=== PATIENT | male | born 1975 | race Two or more races ===

== ENCOUNTER 2023-11-15 19:39 | Inpatient (IN) | payer OTHER ==
[~2023-11-15] VITALS: Ht 170.2 cm; Wt 102.1 kg
[2023-11-15 20:49] LABS: BASOPHILS % (AUTO) 0.8 % (0.0-2.0); EOSINOPHILS % (AUTO) 1.9 % (1.0-6.0); HEMATOCRIT 49.8 % (41-53); HEMOGLOBIN 15.8 g/dL (13.5-17.5); LYMPHOCYTES # (AUTO) 1.6 K/uL (1.0-4.8); LYMPHOCYTES % (AUTO) 22.1 % (22.0-44.0); MEAN CORPUSCULAR HEMOGLOBIN 29.3 pg (26.0-34.0); MEAN CORPUSCULAR HGB CONC 31.8 G/dL (31.0-37.0); MEAN CORPUSCULAR VOLUME 92 fL (80-100); MONOCYTES # (AUTO) 0.8 K/uL (0.1-1.0); MONOCYTES % (AUTO) 10.6 % (2.0-9.0); NEUTROPHILS # (AUTO) 4.8 K/uL (1.8-7.7); NEUTROPHILS % (AUTO) 64.6 % (40.0-70.0); PLATELET COUNT (AUTO) 186 K/uL (150-450); RED CELL DISTRIBUTION WIDTH 16.1 % (11.5-14.5); WHITE BLOOD COUNT (AUTO) 7.4 K/uL (4.5-11.0)
[2023-11-15 20:55] LABS: CREATININE 1.57 mg/dL (0.60-1.30); POTASSIUM 3.8 mmol/L (3.5-5.1)
[2023-11-15 20:56] LABS: CALCIUM, TOTAL 8.4 mg/dL (8.8-10.5)
[2023-11-15 21:03] LABS: INR 1.3 (0.9-1.1); PROTHROMBIN TIME 13.3 SEC (9.4-11.6)
[2023-11-15 21:09] LABS: TROPONIN I-HIGH SENSITIVITY 102 ng/L (<76)
[2023-11-15 21:20] LABS: BILIRUBIN,TOTAL 1.7 mg/dL (0.1-1.0); TOTAL PROTEIN, SERUM 7.5 g/dL (6.4-8.2)
[2023-11-15] MEDS: FUROSEMIDE 20 MG/2 ML VIAL IVP ONE (22:45)
[2023-11-15] MEDS: NITROGLYCERIN 2% (1 GM=INCH) OINTMENT PACKET TP ONE (22:45)
[2023-11-16] VITALS (8 sets, daily range): BP systolic 105–162; BP diastolic 55–111; PULSE 75–109; RESP 18–22; TEMP 97.7–98; O2SAT 96–100
[2023-11-16] MEDS ORDERED: ONDANSETRON HCL 4 MG/2 ML VIAL IVP PRN
[2023-11-16 00:03] LABS: SODIUM,URINE RANDOM 94 mmol/l (20-110)
[2023-11-16 00:09] LABS: AMPHET/METH SCREEN,URINE POSITIVE (NEGATIVE); BENZODIAZEPINES SCREEN,URINE NEGATIVE (NEGATIVE); CANNABINOID SCREEN,URINE NEGATIVE (NEGATIVE); COCAINE SCREEN,URINE NEGATIVE (NEGATIVE); METHADONE SCREEN, URINE NEGATIVE (NEGATIVE); OPIATE SCREEN,URINE NEGATIVE (NEGATIVE); PHENCYCLIDINE SCREEN,URINE NEGATIVE (NEGATIVE)
[2023-11-16 00:20] LABS: ALCOHOL, URINE DRUG SCREEN NEGATIVE (NEGATIVE); CREATININE,URINE RANDOM < 5.0 mg/dL (30.0-125.0)
[2023-11-16 00:32] LABS: BARBITURATE SCREEN, URINE NEGATIVE (NEGATIVE)
[2023-11-16 00:38] LABS: APPEARANCE,URINE CLEAR (CLEAR); BILIRUBIN,URINE NEGATIVE (NEGATIVE); COLOR,URINE COLORLESS (YELLOW); GLUCOSE, URINE (UA) NEGATIVE (NEGATIVE); KETONES,URINE NEGATIVE (NEGATIVE); LEUKOCYTE ESTERASE ,URINE NEGATIVE (NEGATIVE); NITRATE,URINE NEGATIVE (NEGATIVE); OCCULT BLOOD,URINE NEGATIVE (NEGATIVE); PH,URINE 5.5 (5.0-8.0); PROTEIN,URINE NEGATIVE (NEGATIVE); SPECIFIC GRAVITIY, URINE 1.004 (1.003-1.030); UROBILINOGEN,URINE <=1.0 mg/dL (<=1.0)
[2023-11-16 00:43] LABS: LACTIC ACID 0.8 mmol/L (0.4-2.0)
[2023-11-16 00:44] LABS: PH,URINE DRUG SCREEN 5.5 (5.0-8.0)
[2023-11-16] MEDS: SODIUM CHLORIDE 0.9% 250 ML IV ONE (00:55)
[2023-11-16] MEDS: CefTRIAXone 1 GM/DEXTROSE 50 ML IV SCH (00:55)
[2023-11-16] MEDS: ATORVASTATIN CALCIUM 40 MG TABLET PO SCH (00:56)
[2023-11-16] MEDS: CARVEDILOL 3.125 MG TABLET PO SCH (00:56)
[2023-11-16] MEDS: AZITHROMYCIN 500 MG/NS 250 ML IV ONE (00:56)
[2023-11-16] MEDS: HEPARIN SODIUM,PORCINE 5,000 UNITS/ML VIAL SQ SCH (00:57)
[2023-11-16 02:31] LABS: COVID AG,FIA SOURCE NASAL SWAB
[2023-11-16 02:53] LABS: SARS-COV2 (COVID) ANTIGEN,FIA Negative (Negative)
[2023-11-16 06:45] LABS: EOSINOPHILS % (AUTO) 1.3 % (1.0-6.0); HEMATOCRIT 47.7 % (41-53); HEMOGLOBIN 15.5 g/dL (13.5-17.5); LYMPHOCYTES # (AUTO) 1.3 K/uL (1.0-4.8); LYMPHOCYTES % (AUTO) 15.8 % (22.0-44.0); MEAN CORPUSCULAR HEMOGLOBIN 30.1 pg (26.0-34.0); MEAN CORPUSCULAR HGB CONC 32.5 G/dL (31.0-37.0); MEAN CORPUSCULAR VOLUME 93 fL (80-100); MONOCYTES # (AUTO) 0.7 K/uL (0.1-1.0); MONOCYTES % (AUTO) 8.3 % (2.0-9.0); NEUTROPHILS # (AUTO) 6.3 K/uL (1.8-7.7); NEUTROPHILS % (AUTO) 73.6 % (40.0-70.0); PLATELET COUNT (AUTO) 185 K/uL (150-450); RED BLOOD CELL COUNT(AUTO) 5.16 MIL/uL (4.50-5.90); WHITE BLOOD COUNT (AUTO) 8.5 K/uL (4.5-11.0)
[2023-11-16 07:08] LABS: CALCIUM, TOTAL 7.9 mg/dL (8.8-10.5); CREATININE 1.38 mg/dL (0.60-1.30); MAGNESIUM 1.9 mg/dL (1.80-2.40); POTASSIUM 3.8 mmol/L (3.5-5.1)
[2023-11-16] MEDS: DOCUSATE SODIUM 100 MG CAPSULE PO SCH (08:50)
[2023-11-16] MEDS: FUROSEMIDE 20 MG/2 ML VIAL IVP SCH ×2 (08:50→16:59)
[2023-11-16] MEDS: ASPIRIN 81 MG CHEWABLE TABLET PO SCH (08:51)
[2023-11-16 12:59] LABS: PH,URINE DRUG SCREEN 5.5 (5.0-8.0)
[2023-11-16 13:23] LABS: ALCOHOL, URINE DRUG SCREEN NEGATIVE (NEGATIVE); AMPHET/METH SCREEN,URINE POSITIVE (NEGATIVE); BARBITURATE SCREEN, URINE NEGATIVE (NEGATIVE); BENZODIAZEPINES SCREEN,URINE NEGATIVE (NEGATIVE); CANNABINOID SCREEN,URINE NEGATIVE (NEGATIVE); COCAINE SCREEN,URINE NEGATIVE (NEGATIVE); METHADONE SCREEN, URINE NEGATIVE (NEGATIVE); OPIATE SCREEN,URINE NEGATIVE (NEGATIVE); PHENCYCLIDINE SCREEN,URINE NEGATIVE (NEGATIVE)
[2023-11-16 13:46] LABS: TROPONIN I-HIGH SENSITIVITY 80 ng/L (<76)
[2023-11-16] MEDS ORDERED: LORazepam 2 MG TABLET PO PRN (15:30)
[2023-11-16] MEDS ORDERED: PERFLUTREN PROTEIN-A MICROSPHERES 0.22 MG/ML 3 ML VIAL IVP ONE (16:30)
[2023-11-16] MEDS: PERFLUTREN PROTEIN-A MICROSPHERES 0.22 MG/ML 3 ML VIAL IVP ONE (16:47)
[2023-11-16] MEDS: PIPERACILLIN/TAZO 3.375 GM/D5W 50 ML IV SCH (16:58)
[2023-11-16] MEDS: IPRATROPIUM BROMIDE 0.5 MG/2.5 ML NEB SOLUTION NEB PRN (17:35)
[2023-11-16] MEDS: ALBUTEROL SULFATE 2.5 MG/0.5 ML NEB SOLUTION NEB PRN (17:35)
[2023-11-17] VITALS: BP 153/100; PULSE 70; RESP 19; O2SAT 95
[2023-11-17 04:00] VITALS: BP 158/89; PULSE 101; RESP 18; O2SAT 95
[2023-11-17 06:32] LABS: BASOPHILS % (AUTO) 1.1 % (0.0-2.0); EOSINOPHILS % (AUTO) 1.6 % (1.0-6.0); HEMATOCRIT 53.8 % (41-53); HEMOGLOBIN 17.2 g/dL (13.5-17.5); LYMPHOCYTES # (AUTO) 1.9 K/uL (1.0-4.8); LYMPHOCYTES % (AUTO) 20.5 % (22.0-44.0); MEAN CORPUSCULAR HEMOGLOBIN 29.7 pg (26.0-34.0); MEAN CORPUSCULAR HGB CONC 31.9 G/dL (31.0-37.0); MEAN CORPUSCULAR VOLUME 93 fL (80-100); MONOCYTES # (AUTO) 0.9 K/uL (0.1-1.0); MONOCYTES % (AUTO) 9.7 % (2.0-9.0); NEUTROPHILS # (AUTO) 6.1 K/uL (1.8-7.7); NEUTROPHILS % (AUTO) 67.1 % (40.0-70.0); PLATELET COUNT (AUTO) 192 K/uL (150-450); RED BLOOD CELL COUNT(AUTO) 5.77 MIL/uL (4.50-5.90); RED CELL DISTRIBUTION WIDTH 16.6 % (11.5-14.5); WHITE BLOOD COUNT (AUTO) 9.1 K/uL (4.5-11.0)
[2023-11-17 06:47] LABS: CALCIUM, TOTAL 9.3 mg/dL (8.8-10.5); CREATININE 1.33 mg/dL (0.60-1.30); POTASSIUM 3.9 mmol/L (3.5-5.1)
[2023-11-17] MEDS ORDERED: LORazepam 2 MG TABLET PO PRN (07:00)
[2023-11-17 08:21] VITALS: BP 161/115; PULSE 104; RESP 19; TEMP 98.1; O2SAT 98
[2023-11-17] MEDS: LOSARTAN POTASSIUM 25 MG TABLET PO SCH (08:52)
[2023-11-17] MEDS ORDERED: AZITHROMYCIN 250 MG TABLET PO SCH (09:00)
[2023-11-17 11:22] VITALS: BP 131/94; PULSE 95; RESP 18; TEMP 98; O2SAT 97
[2023-11-17 15:35] VITALS: BP 135/78; PULSE 96; RESP 19; TEMP 97.6; O2SAT 97
[2023-11-17 20:03] VITALS: BP 143/87; PULSE 96; RESP 18; TEMP 98.1; O2SAT 100
[2023-11-17] MEDS: CARVEDILOL 6.25 MG TABLET PO SCH (20:49)
[2023-11-18] VITALS (7 sets, daily range): BP systolic 113–151; BP diastolic 78–93; PULSE 79–99; RESP 18–20; TEMP 97.4–98.5; O2SAT 96–100
[2023-11-18] MEDS: ACETAMINOPHEN 325 MG TABLET PO PRN (00:37)
[2023-11-18 07:00] LABS: CALCIUM, TOTAL 8.5 mg/dL (8.8-10.5); CREATININE 1.37 mg/dL (0.60-1.30); POTASSIUM 3.6 mmol/L (3.5-5.1)
[2023-11-18 07:02] LABS: BASOPHILS % (AUTO) 0.8 % (0.0-2.0); EOSINOPHILS % (AUTO) 1.4 % (1.0-6.0); HEMOGLOBIN 16.7 g/dL (13.5-17.5); LYMPHOCYTES # (AUTO) 1.6 K/uL (1.0-4.8); LYMPHOCYTES % (AUTO) 17.1 % (22.0-44.0); MEAN CORPUSCULAR HEMOGLOBIN 29.6 pg (26.0-34.0); MEAN CORPUSCULAR HGB CONC 32.2 G/dL (31.0-37.0); MEAN CORPUSCULAR VOLUME 92 fL (80-100); MONOCYTES # (AUTO) 0.8 K/uL (0.1-1.0); MONOCYTES % (AUTO) 8.4 % (2.0-9.0); NEUTROPHILS # (AUTO) 6.9 K/uL (1.8-7.7); NEUTROPHILS % (AUTO) 72.3 % (40.0-70.0); PLATELET COUNT (AUTO) 191 K/uL (150-450); RED BLOOD CELL COUNT(AUTO) 5.65 MIL/uL (4.50-5.90); RED CELL DISTRIBUTION WIDTH 16.1 % (11.5-14.5); WHITE BLOOD COUNT (AUTO) 9.5 K/uL (4.5-11.0)
[2023-11-18] MEDS: SPIRONOLACTONE 25 MG TABLET PO SCH (08:33)
[2023-11-18] MEDS: FUROSEMIDE 20 MG TABLET PO SCH (21:44)
[2023-11-19 03:31] VITALS: BP 144/103; PULSE 82; RESP 19; TEMP 97.9; O2SAT 92
[2023-11-19] MEDS ORDERED: LORazepam 1 MG TABLET PO PRN (07:00)
[2023-11-19 07:57] VITALS: BP 136/109; PULSE 90; RESP 19; TEMP 97.8; O2SAT 100
[2023-11-19] MEDS: LORazepam 1 MG TABLET PO SCH (08:10)
[2023-11-19 11:16] VITALS: BP 119/79; PULSE 78; RESP 18; TEMP 98.1; O2SAT 98
[2023-11-19] MEDS ORDERED: SPIR-37 PO (13:02)
[2023-11-19] MEDS ORDERED: ASPI-1450 PO (13:02)
[2023-11-19] MEDS ORDERED: CARV6 PO (13:02)
[2023-11-19] MEDS ORDERED: ATOR40TA71 PO (13:02)
[2023-11-19] MEDS ORDERED: FURO20 PO (13:02)
[2023-11-19] MEDS ORDERED: AMOX-426 PO (13:02)
[2023-11-19] MEDS ORDERED: LOSA-417 PO (13:02)
[2023-11-20] MEDS ORDERED: LORazepam 1 MG TABLET PO PRN (07:00)
== END 2023-11-19 13:50 | disposition home or self-care (01) | DRG 137 ==
LOC: EMS 19:39 → EDH 11-16 01:45 → 5S 11-16 03:25
PROVIDERS: ADMIT Internal Medicine; ATTEND Internal Medicine
DX: J15.69 Pneumonia due to other Gram-negative bacteria (principal); I50.21 Acute systolic (congestive) heart failure; N17.9 Acute kidney failure, unspecified; I42.0 Dilated cardiomyopathy; Z20.822 Contact with and (suspected) exposure to COVID-19; F15.10 Other stimulant abuse, uncomplicated; F10.10 Alcohol abuse, uncomplicated; N18.30 Chronic kidney disease, stage 3 unspecified; F17.200 Nicotine dependence, unspecified, uncomplicated
CPT/HCPCS: 71045; 71250; 80048; 80053; 80307; 81003; 82550; 82570; 83605; 83735; 83880; 84300; 84484; 85025; 85610; 85730; 87040; 93005; 93306; 94640; 99285; C8924; J0456; J0696; J1644; J1940; J2543; J7050; 36415-L1; 36415-TC; J7613